=== PATIENT | female | born 1950 | race Caucasian/White ===

== ENCOUNTER 2017-12-01 07:43 | Day surgery (SDC) | payer MEDICARE, MEDICAID ==
--- NOTE | 2017-12-01 08:25 | CP.SDSHP ---
Same Day Surgery H & P - History Proposed Procedure: Screening colonoscopy Pre-Op Diagnosis: Screening for colon cancer - Previous Medical/Surgical History Endocrine/Metabolic: Thyroid Disease Misc: Other Comments: Hyperlipdemia, arthritis Previous Surgical History: None - Allergies Allergies: Allergies No Known Allergies Allergy (Verified 12/01/17 07:59) - Current Medications Current Medications: See reconciliation sheet - Physical Exam General Appearance: WD WN female in NAD Vital Signs: Vital Signs 12/01/17 12/01/17 07:58 08:01 Temperature 96.9 F L Pulse Rate 85 85 Respiratory 13 Rate Blood Pressure 129/80 O2 Sat by Pulse 100 Oximetry Mental Status: Alert & Oriented x3 Neuro: WNL Heart: WNL Lungs: WNL GI: WNL - {Optional Preform as Required} Abdomen: WNL - Impression Impression: Screening got colon cancer Pt. Evaluated Today:Candidate for Anesthesia & Procedure: Yes - Date & Time Date: 12/01/17 Time: 08:25 Short Stay Discharge - Short Stay Discharge Admitting Diagnosis/Reason for Visit: SCREENING Disposition: HOME/ ROUTINE
[2017-12-01] MEDS ORDERED: Lactated Ringer's 1,000 ML IV ONE ×2 (08:45)
[2017-12-01] MEDS ORDERED: Propofol 10 mg/ml Inj (20 ML) ONE (09:15)
[2017-12-01 09:22] VITALS: TEMP 97.3
[2017-12-01 09:34] VITALS: O2SAT 100
[2017-12-01 10:12] VITALS: BP 123/60; PULSE 65; RESP 13
== END 2017-12-01 10:00 | disposition home or self-care (01) ==
LOC: C.ENDO 07:43
PROVIDERS: ATTEND Internal Medicine Gastroenterology
DX: Z12.11 Encounter for screening for malignant neoplasm of colon (principal); K64.0 First degree hemorrhoids; E03.9 Hypothyroidism, unspecified; E78.5 Hyperlipidemia, unspecified; M19.90 Unspecified osteoarthritis, unspecified site
CPT/HCPCS: G0121; J2704; J7120

== ENCOUNTER 2018-07-27 11:06 | Outpatient (CLI) | payer MEDICARE, MEDICAID | END 2018-07-27 11:07 | disposition home or self-care (01) | LOC: C.RADH 11:06 | DX: M54.9 Dorsalgia, unspecified (principal) ==